=== PATIENT | female | born 1960 | race Caucasian/White ===

== ENCOUNTER 2021-01-17 11:01 | Emergency (ER) | payer OTHER ==
[2021-01-17 11:53] LABS: Absolute Lymphocytes (CBC) 2.2 K/uL (0.7-4.9); Basophils % 0.6 % (0-1.3); Hematocrit 44.2 % (36.0-45.0); MPV 7.6 fL (7.6-11.3); Protime INR 0.89; RBC Red Blood Cell Count 4.76 M/uL (3.86-4.86)
[2021-01-17 12:12] LABS: ALT/SGPT 29 U/L (12-78); AST/SGOT 18 U/L (15-37); Albumin 4.1 g/dL (3.4-5.0); Alkaline Phosphatase 73 U/L (45-117); BUN Blood Urea Nitrogen 17 mg/dL (7-18); Bicarbonate 29 mmol/L (21-32); Bilirubin Direct 0.1 mg/dL (0-0.2); Bilirubin Total 0.5 mg/dL (0.2-1.0); Glucose Level 110 mg/dL (74-106); Magnesium 2.3 mg/dL (1.8-2.4); NT PRO-BNP 57 pg/mL (<125); Potassium 3.9 mmol/L (3.5-5.1); Protein, Total 7.8 g/dL (6.4-8.2); Sodium Level 142 mmol/L (136-145); Troponin (Emerg Dept Use Only) < 0.02 ng/mL (0.0-0.045)
[2021-01-17 12:43] LABS: Thyroid Stimulating Hormone 2.05 uIU/mL (0.360-3.740)
--- NOTE | 2021-01-17 13:12 | ER ---
Nurse's Notes [facility] Name: Shelly Celaya Age: 60 yrs Sex: Female : 1960 Arrival Date: 01/17/2021 Time: 11:06 Bed Waiting Private MD: Diagnosis: Paroxysmal atrial fibrillation Presentation: 01/17 11:14 Chief complaint: Patient states: Dizzy for a few days, worse today. Apple watch showed ll1 possible A fib. PCP told her to come get checked. Coronavirus screen: Client denies travel out of the [place] in the last 14 days. At this time, the client does not indicate any symptoms associated with coronavirus-19. Ebola Screen: Patient denies travel to an Ebola-affected area in the 21 days before illness onset. Initial Sepsis Screen: Does the patient meet any 2 criteria? No. Patient's initial sepsis screen is negative. Does the patient have a suspected source of infection? No. Patient's initial sepsis screen is negative. Risk Assessment: Do you want to hurt yourself or someone else? Patient reports no desire to harm self or others. Onset of symptoms was January 14, 2021. 11:14 Method Of Arrival: Ambulatory ll1 11:14 Acuity: SARITA 3 ll1 Triage Assessment: 11:27 General: Appears in no apparent distress. Behavior is calm, cooperative, appropriate ll1 for age. Pain: Denies pain. Neuro: Level of Consciousness is awake, alert, obeys commands, Oriented to person, place, time, situation, Appropriate for age Learning Program Manager are Moves all extremities. Full function Gait is steady, Speech is normal, Facial symmetry appears normal, Reports dizziness, a syncopal episode. Cardiovascular: Reports apple watch said A FIB Heart tones S1 S2 Capillary refill < 3 seconds Clubbing of nail beds is absent JVD is absent Patient's skin is warm and dry. Rhythm is regular. Respiratory: No deficits noted. GI: Abdomen is flat, Bowel sounds present X 4 quads. Reports nausea. Musculoskeletal: No deficits noted. Historical: - Allergies: 11:15 "pain medication"; ll1 - PMHx: 11:15 None; ll1 - PSHx: 11:15 polyps removed; ll1 - Immunization history:: Client reports receiving the 2nd dose of the Covid vaccine, Flu vaccine is up to date. - Social history:: Smoking status: Patient denies any tobacco usage or history of. - Family history:: not pertinent. - Hospitalizations: : No recent hospitalization is reported. Screenin:29 Abuse screen: Denies threats or abuse. Nutritional screening: No deficits noted. ll1 Tuberculosis screening: No symptoms or risk factors identified. Fall Risk IV access (20 points). Gait- Weak (10 pts.). Total Hammond Fall Scale indicates Low Risk Score (25-44 pts). Fall prevention measures have been instituted. Side Rails Up X 2 Frequent Obs/Assesments occuring As available Patient and Family Educated on Fall Prevention Program and strategies. Assessment: 12:30 Reassessment: No changes from previously documented assessment. Patient and/or family ll1 updated on plan of care and expected duration. Pain level reassessed. Patient is alert, oriented x 3, equal unlabored respirations, skin warm/dry/pink. Vital Signs: 11:14 BP 157 / 84; Pulse 85; Resp 17; Temp 98.1; Pulse Ox 100% ; Weight 80.74 kg; Height 5 ll1 ft. 6 in. (167.64 cm); Pain 0/10; 13:09 BP 153 / 84; Pulse 83; Resp 16; Pulse Ox 100% on R/A; ll1 11:14 Body Mass Index 28.73 (80.74 kg, 167.64 cm) ll1 ED Course: 11:06 Patient arrived in ED. mr 11:15 Triage completed. ll1 11:16 Arm band placed on. ll1 11:25 Vasyl Lemons MD is Attending Physician. rn 11:29 Patient has correct armband on for positive identification. Bed in low position. Call ll1 light in reach. Side rails up X 1. 11:29 EKG completed in triage. Results shown to MD. ll1 11:40 Inserted saline lock: 22 gauge in right antecubital area, using aseptic technique. ll1 Blood collected. 13:31 No provider procedures requiring assistance completed. IV discontinued, intact, ll1 bleeding controlled, No redness/swelling at site. Pressure dressing applied. Administered Medications: No medications were administered Outcome: 13:11 Discharge ordered by MD. rn 13:32 Discharged to home ambulatory. ll1 13:32 Condition: stable 13:32 Discharge instructions given to patient, Instructed on discharge instructions, follow up and referral plans. medication usage, Demonstrated understanding of instructions, follow-up care, medications, Prescriptions given X 1. 13:32 Patient left the ED. ll1 Signatures: Bouchra Peña Roman, MD MD rn Lewis, Lynsay, RN RN ll1
--- NOTE | 2021-01-17 13:12 | EDPHYS ---
Physician Documentation [facility] Name: Shelly Celaya Age: 60 yrs Sex: Female : 1960 Arrival Date: 01/17/2021 Time: 11:06 Bed Waiting Private MD: ED Physician Vasyl Lemons HPI: 01/17 12:06 This 60 yrs old Female presents to ER via Ambulatory with complaints of rn Nausea, Afib. 12:06 The patient presents with a history of irregular heart beat, heart racing. Context: The rn symptoms occur at rest. Onset: The symptoms/episode began/occurred this morning. Duration: The patient or guardian reports a single episode, that is now resolved. Modifying factors: The symptoms are aggravated by nothing. The symptoms are alleviated by nothing. Associated signs and symptoms: Pertinent positives: lightheadedness, nausea, Pertinent negatives: SOB, syncope. Severity of symptoms: At their worst the symptoms were moderate in the emergency department the symptoms have resolved. The patient has not experienced similar symptoms in the past. The patient has not recently seen a physician. Patient reports that this morning began with palpitations, felt irregular, felt lightheaded and dizzy. No previous cardiac history or arrhythmia. Reports feeling lightheaded and diaphoretic. Denies any chest pain or shortness of breath. Zirconia nauseous. Her apple watch told her that she might be in atrial fibrillation which she has never been diagnosed with. Takes a baby aspirin a day. Now symptoms have resolved and feels normal. Called her finisher plate made an appointment 2 weeks from now.. Historical: - Allergies: 11:15 "pain medication"; ll1 - PMHx: 11:15 None; ll1 - PSHx: 11:15 polyps removed; ll1 - Immunization history:: Client reports receiving the 2nd dose of the Covid vaccine, Flu vaccine is up to date. - Social history:: Smoking status: Patient denies any tobacco usage or history of. - Family history:: not pertinent. - Hospitalizations: : No recent hospitalization is reported. ROS: 12:06 Constitutional: Negative for fever, chills, and weight loss, Eyes: Negative for injury, rn pain, redness, and discharge, ENT: Negative for injury, pain, and discharge, Neck: Negative for injury, pain, and swelling, Cardiovascular: Positive for palpitations. Negative for chest pain Respiratory: Negative for shortness of breath, cough, wheezing, and pleuritic chest pain, Abdomen/GI: Negative for abdominal pain, vomiting, diarrhea, and constipation, Back: Negative for injury and pain, : Negative for injury, bleeding, discharge, and swelling, MS/Extremity: Negative for injury and deformity, Skin: Negative for injury, rash, and discoloration, Neuro: Negative for headache, weakness, numbness, tingling, and seizure. 12:06 All other systems are negative. Exam: 11:56 ECG was reviewed by the Attending Physician. rn 12:06 Constitutional: This is a well developed, well nourished patient who is awake, alert, rn and in no acute distress. Head/Face: Normocephalic, atraumatic. Eyes: Periorbital areas with no swelling, redness, or edema. ENT: No stridor Cardiovascular: Regular rate and rhythm. No pulse deficits. Respiratory: No increased work of breathing, no retractions or nasal flaring. Abdomen/GI: Soft, non-tender Skin: Warm, dry with normal turgor. Normal color with no rashes, no lesions, and no evidence of cellulitis. MS/ Extremity: Pulses equal, no cyanosis. Neurovascular intact. Full, normal range of motion. Equal circumference. Neuro: Awake and alert, GCS 15, oriented to person, place, time, and situation. Cranial nerves II-XII grossly intact. Motor strength 5/5 in all extremities. Sensory grossly intact. Vital Signs: 11:14 BP 157 / 84; Pulse 85; Resp 17; Temp 98.1; Pulse Ox 100% ; Weight 80.74 kg; Height 5 ll1 ft. 6 in. (167.64 cm); Pain 0/10; 13:09 BP 153 / 84; Pulse 83; Resp 16; Pulse Ox 100% on R/A; ll1 11:14 Body Mass Index 28.73 (80.74 kg, 167.64 cm) ll1 MDM: 13:07 Differential diagnosis: arrythmia, dehydration, stress disorder. Data reviewed: vital rn signs, nurses notes, lab test result(s), EKG, and as a result, I will discharge patient. Counseling: I had a detailed discussion with the patient and/or guardian regarding: the historical points, exam findings, and any diagnostic results supporting the discharge/admit diagnosis, lab results, the need for outpatient follow up, to return to the emergency department if symptoms worsen or persist or if there are any questions or concerns that arise at home. Response to treatment: the patient's symptoms have resolved after treatment, the patient's condition has returned to base line, and as a result, I will discharge patient. Special discussion: I discussed with the patient/guardian in detail that at this point there is no indication for admission to the hospital. It is understood, however, that if the symptoms persist or worsen the patient needs to return immediately for re-evaluation. Based on the history and exam findings, there is no indication for further emergent testing or inpatient evaluation. ED course: She remains in sinus rhythm, no acute abnormalities in blood. NSR on ECG. Asymptomatic. Most likely paroxysmal afib. Will dc home with low dose metoprolol and aspirin daily until cardiology f/u.. 13:11 Patient medically screened. rn 01/17 11:30 Order name: Basic Metabolic Panel; Complete Time: 13: [facility] 01/17 11:30 Order name: CBC with Diff; Complete Time: [facility] 01/17 11:30 Order name: LFT's; Complete Time: 13 [facility] 01/17 11:30 Order name: Magnesium; Complete Time: : [facility] 01/17 11:30 Order name: NT PRO-BNP; Complete Time: 13: [facility] 01/17 11:30 Order name: PT-INR; Complete Time: 13: [facility] 01/17 11:30 Order name: Troponin (emerg Dept Use Only); Complete Time: 13: [facility] 01/17 11:30 Order name: EKG; Complete Time: 11: [facility] 01/17 11:30 Order name: Cardiac monitoring; Complete Time: 11 [facility] 01/17 11:30 Order name: EKG - Nurse/Tech; Complete Time: [facility] 01/17 11:30 Order name: IV Saline Lock; Complete Time: : [facility] 01/17 11:58 Order name: TSH; Complete Time: 13: 01/17 11:58 Order name: T4 Free; Complete Time: 13: 01/17 11:30 Order name: Labs collected and sent; Complete Time: 11: [facility] 01/17 11:30 Order name: O2 Per Protocol; Complete Time: 1 01/17 11:30 Order name: O2 Sat Monitoring; Complete Time: ll EC:56 Rate is 84 beats/min. Rhythm is regular. QRS [place] is Normal. NE interval is normal. QRS rn interval is normal. QT interval is normal. No Q waves. T waves are Normal. No ST changes noted. Clinical impression: Normal ECG. Interpreted by me. Reviewed by me. Administered Medications: No medications were administered Disposition Summary: 01/17/21 13:11 Discharge Ordered Location: Home rn Problem: new rn Symptoms: have improved rn Condition: Stable rn Diagnosis - Paroxysmal atrial fibrillation rn Followup: rn - With: Private Physician - When: As needed - Reason: Recheck today's complaints, Re-evaluation by your physician Discharge Instructions: - Discharge Summary Sheet rn - Atrial Fibrillation rn Forms: - Medication Reconciliation Form rn - Thank You Letter rn - Antibiotic early morning babysitter - Prescription Opioid Use rn Prescriptions: - Metoprolol Tartrate 25 mg Oral Tablet - take 1 tablet by ORAL route 2 times per day with a meal; 60 tablet; Refills: 0, rn Product Selection Permitted Signatures: Dispatcher [employer] Vasly Purvis MD MD rn Lewis, Lynsay, RN RN 1 Corrections: (The following items were deleted from the chart) 13:20 11:31 Chest Single View+[email or web address] ordered. EDAL EDMS
[2021-01-17 14:57] VITALS: TEMP 98.1; O2SAT 100
[2021-01-17 14:59] VITALS: BP 153/84
--- NOTE | 2021-01-18 12:43 | EKG ---
Test Date: 2021-01-17 Test Time: 11:24:20 Burlesque Dancer: BENNY MEASUREMENT RESULTS: Intervals: Rate: 84 KS: 128 QRSD: 82 QT: 390 QTc: 460 Russell: P: 87 KS: 128 QRS: 75 T: 66 INTERPRETIVE STATEMENTS: Normal sinus rhythm Normal ECG No previous ECG available for comparison Electronically Signed On 01-18-21 12:41:37 CDT by Gallo Savage
== END 2021-01-17 13:32 | disposition home or self-care (01) ==
LOC: ER 11:01
DX: I48.0 Paroxysmal atrial fibrillation (principal)
CPT/HCPCS: 36415; 80048; 80076; 83735; 83880; 84439; 84443; 84484; 85025; 85610; 93005; 99283

== ENCOUNTER 2024-04-09 22:06 | Emergency (ER) | payer OTHER ==
--- OUTSIDE RECORDS SUMMARY | 2024-04-09 22:09 | XMS REPORT | Continuity of Care Document ---
Author Name Unknown Address [address] [facility] [address] [id number] [facility] thconnect Address [address] [facility] [address] [place] [address] Care Team Providers Care Chemistry Tutor Name Role Phone Alessia Rosenbaum Attending Clinician Unavail able GC_GCBZW_[place]_S Attending Clinician Unavaila ble Lab, Adc Fam Pob I Attending Clinician Unavailab Odessa Mccrary Attending Clinician [phone] ODESSA ROE Attending Clinician Unavailable Only, Adc Test Attending Clinician Unavailable Marcell Mckinney MD Attending Clinician [phone] MARCELL MCKINNEY Attending Clinician Unavailabl e Doctor Unassigned, [facility] Attending Clinician U navailable [email or web address]_S Admitting Clinician Unavaila ble Payers Payer Name Policy Type Policy Number Effective Date Expirati on Date Source AETNA 53 [id number] Common [facility] AETNA - CHOICE (POS II) [id number] 2008 00:00:00 Problems Condition Name Condition Details Condition Category Status Onset Date Resolution Date Last Treatment Date Treating Clinician Comments Source Hypothyroi dism Hypothyroi dism Problem Active 08-05 00:00: 00 [facility] Atrophic vaginitis Atrophic Vaginitis Problem Active 08-05 00:00: 00 [facility] Attention deficit hyperactiv ity disorder ADHD (attention deficit hyperactiv ity disorder) Problem [facility] [id number] Subclinica l hypothyroi dism Problem [facility] [id number] Pure hyperchole sterolemia Problem [facility] [id number] Overweight Problem Com [facility] [id number] Essential hypertensi on Problem [facility] [id number] Gastroesop hageal reflux disease without esophagiti s Problem [facility] Allergies, Adverse Reactions, Alerts Allergy Name Allergy Type Status Severity Reaction(s) Onset Date Inactive Date Treating Clinician Comments Source NO KNOWN ALLERGIE S Drug Class Active [facility] Social History Social Habit Start Date Stop Date Quantity Comments Source History of Tobacco Use [facility] Sex Assigned At [facility] Exposure to SARS-CoV-2 (event) Yes [facility] Smoking Status Start Date Stop Date Source Unknown if ever smoked [facility] Never Smoker [facility] Former Smoker 2023-06-18 00:00:00 2023-06-18 00:00:00 [facility] Medications Ordered Medication Name Filled Medication Name Start Date Stop Date Current Medication? Ordering Clinician Indication Dosage Frequency Signature (SIG) Comments Components Source Vyvanse 20 MG Vyvanse 20 MG 2023-04 0 00:00: 00 No 1{capsu le_in_t he_morn ing} QD Vyvanse 20 MG Vyvanse 30 MG Vyvanse 30 MG 07-23 00:00: 00 No 1{capsu le_in_t he_morn ing} QD Vyvanse 30 MG Pepcid AC 10 MG Pepcid AC 10 MG No 1{table t_as_ne eded} BID Pepcid AC 10 MG Vitamin D3 Vitamin D3 No Vitamin D3 Levothyroxi ne Sodium 25 MCG Levothyroxi ne Sodium 25 MCG No QD Levothyrox ine Sodium 25 MCG Magnesium Citrate 125 MG Magnesium Citrate 125 MG No Magnesium Citrate 125 MG Omeprazole 20 MG Omeprazole 20 MG No QD Omeprazole 20 MG levothyroxi ne levothyroxi ne No levothyrox ine [facility] metoprolol succinate 25 mg metoprolol succinate 25 mg No metoprolol succinate 25 mg [facility] Vitamin D 5000 mg Vitamin D 5000 mg No Vitamin D 5000 mg [facility] Vyvanse 30 mg capsule Take 1 capsule every day by oral route. Vyvanse 30 mg capsule Take 1 capsule every day by oral route. No 1capsul e(s) Q1D Vyvanse 30 mg capsule Take 1 capsule every day by oral route. [facility] Immunizations Ordered Immunization Name Filled Immunization Name Date Status Comments Source Boostrix (Tdap) Boostrix (Tdap) Unknown Completed [facility] Boostrix (Tdap) Boostrix (Tdap) Unknown Completed [facility] Boostrix (Tdap) Boostrix (Tdap) Unknown Completed [facility] Boostrix (Tdap) Boostrix (Tdap) Unknown Completed [facility] Boostrix (Tdap) Boostrix (Tdap) Unknown Completed [facility] Fluarix (IIV3) - SDS - 0.5mL Fluarix (IIV3) - SDS - 0.5mL Unknown Completed [facility] Boostrix (Tdap) Boostrix (Tdap) Unknown Completed [facility] Boostrix (Tdap) Boostrix (Tdap) Unknown Completed [facility] Vital Signs Vital Name Observation Time Observation Value Comments S ource height 2024-01-29 08:00:00 66 [in_i] Commo n [facility] weight 2024-01-29 08:00:00 182 [lb_av] Comm on [facility] temperature 2024-01-29 08:00:00 97.3 [degF] Com mon [facility] bmi 2024-01-29 08:00:00 29.37 kg/m2 Comm on [facility] oximetry 2024-01-29 08:00:00 99 % Commo n [facility] respiratory rate 2024-01-29 08:00:00 17 /min [facility] blood pressure systolic 2024-01-29 08:00:00 130 mm[Hg] Common Spiri t [facility] blood pressure diastolic 2024-01-29 08:00:00 80 mm[Hg] [facility] BP Systolic 2023-08-06 00:00:00 151 mm[Hg] [facility] BP Diastolic 2023-08-06 00:00:00 90 mm[Hg] [facility] Weight 2023-08-06 00:00:00 183.2 [lb_av] [facility] BMI (Body Mass Index) 2023-08-06 00:00:00 29.6 kg/m2 [facility] Height 2023-08-06 00:00:00 66 [in_i] [facility] height 2023-07-30 09:40:00 66 [in_i] Commo n [facility] weight 2023-07-30 09:40:00 182 [lb_av] Comm on [facility] temperature 2023-07-30 09:40:00 97.5 [degF] Com mon [facility] bmi 2023-07-30 09:40:00 29.37 kg/m2 Comm on [facility] oximetry 2023-07-30 09:40:00 94 % Commo n [facility] respiratory rate 2023-07-30 09:40:00 18 /min Common [facility] blood pressure systolic 2023-07-30 09:40:00 139 mm[Hg] Common Spiri t [facility] blood pressure diastolic 2023-07-30 09:40:00 85 mm[Hg] [facility] height 2023-06-18 09:40:00 66 [in_i] Commo n [facility] weight 2023-06-18 09:40:00 184 [lb_av] Comm on [facility] temperature 2023-06-18 09:40:00 97.8 [degF] Com mon [facility] bmi 2023-06-18 09:40:00 29.7 kg/m2 Commo n [facility] oximetry 2023-06-18 09:40:00 96 % Commo n [facility] respiratory rate 2023-06-18 09:40:00 18 /min [facility] blood pressure systolic 2023-06-18 09:40:00 139 mm[Hg] Common [facility] blood pressure diastolic 2023-06-18 09:40:00 81 mm[Hg] [facility] height 2023-05-20 09:00:00 66 [in_i] Commo n [facility] weight 2023-05-20 09:00:00 184 [lb_av] Comm on [facility] temperature 2023-05-20 09:00:00 97.5 [degF] Com mon [facility] bmi 2023-05-20 09:00:00 29.7 kg/m2 Commo n [facility] oximetry 2023-05-20 09:00:00 98 % Commo n [facility] respiratory rate 2023-05-20 09:00:00 17 /min [facility] blood pressure systolic 2023-05-20 09:00:00 140 mm[Hg] [facility] blood pressure diastolic 2023-05-20 09:00:00 80 mm[Hg] [facility] Procedures Procedure Date / Time Performed Performing Clinicia n Source MAMMO, screening, digital, bilateral 2023-08-06 00:00:00 [facility] DEXA 2023-08-06 00:00:00 Delphine westbrook ASSIGNMENT OF BENEFITS 2020-03-21 18:01:10 Docto r Unassigned, [address] [facility] Plan of Care Planned Activity Planned Date Details Comments Source Future Appointment 2024-08-06 08:30:00 Tianna abdi, Aminta [address]; [facility] [address], [place] [address] [facility] Encounters Start Date/Time End Date/Time Encounter Type Admission Type Attending Clinicians Care Facility Care Department Encounter ID Source 2023-07-26 11:47:00 Outpatient Alessia Rosenbaum STLC STLMLC [id number] [facility] 2023-06-14 10:24:01 Outpatient Alessia Rosenbaum STLMLC STLMLC [id number] [facility] 2023-05-20 08:43:01 Outpatient Alessia Rosenbaum ST[facility] STLMLC [id number] [facility] 2024-01-29 00:00:00 2024-01-29 00:00:00 OFFICE VISIT ESTAB PT LEVEL 4 STLMLC STLC [id number] [facility] 2023-11-21 00:00:00 2023-11-21 00:00:00 (TEL) STLMLC STLMLC [id number] [facility] 2023-09-03 00:00:00 2023-09-03 00:00:00 GABRIELA Alvarado: [address], [address], [place] [address] , Ph. [facility] - [facility]BZ[facility]* [id number] [facility] 2023-08-08 00:00:00 2023-08-08 00:00:00 Deirdre Guerrero MD: [address], [address], [place] [address] , Ph. [facility] - [facility]BZ[facility]* [id number] [facility] 2023-08-07 00:00:00 2023-08-07 00:00:00 Outpatient GC_GCBZW_Mary gomez_Mando [facility] [id number] [facility] 2023-08-06 00:00:00 2023-08-06 00:00:00 BETTY Li: [address], [address], [place] [address] , Ph. GC_GCBZW_Ka diyala_S [facility] - GC_GCBZW_[facility]* [id number] [facility] 2023-07-30 00:00:00 2023-07-30 00:00:00 OFFICE VISIT ESTAB PT LEVEL 4 STLMLC STLMLC [id number] [facility] 2023-07-25 00:00:00 2023-07-25 00:00:00 (TEL) STLMLC STLMLC [id number] [facility] 2023-07-24 00:00:00 2023-07-24 00:00:00 (TEL) STLMLC STLMLC [id number] [facility] 2023-07-24 00:00:00 2023-07-24 00:00:00 (TEL) STLMLC STLMLC [id number] [facility] 2023-06-24 00:00:00 2023-06-24 00:00:00 Outpatient GC_GCBZW_Ka diyala_S PRIV PRIV [id number] [facility] 2023-06-20 00:00:00 2023-06-20 00:00:00 Outpatient GC_GCBZW_Ka diyala_S PRIV PRIV [id number] [facility] 2023-06-18 00:00:00 2023-06-18 00:00:00 PREV VISIT EST AGE 40-64 STLMLC STLMLC [id number] [facility] 2023-06-18 00:00:00 2023-06-18 00:00:00 (TEL) STLMLC STLMLC [id number] [facility] 2023-05-22 00:00:00 2023-05-22 00:00:00 (TEL) STLMLC STLMLC [id number] [facility] 2023-05-20 00:00:00 2023-05-20 00:00:00 OFFICE VISIT NEW PT LEVEL 4 STLMLC STLMLC [id number] [facility] 2020-05-19 13:37:06 2020-05-19 13:57:06 Laboratory Only Lab, Adc Fam Pob Darryn Deon Odessa Grant [facility] [address] 1..[id number] [facility] 2020-05-19 13:20:00 2020-05-19 13:20:00 Outpatient Cecily ODESSA ROE [facility] [id number] [facility] 2020-03-21 12:00:15 2020-03-21 12:15:15 Laboratory Only Only, [facility] Test Marcell Mckinney [facility] 1..840.114 [id number] [facility] 2020-03-21 11:30:00 2020-03-21 11:30:00 Outpatient MARCELL OLIVEROS [facility] [id number] [facility] 2020-03-21 00:00:00 2020-03-21 00:00:00 Orders Only Doctor Unassigned, [address] [facility] 1..840.114 [id number] [facility] Results Test Description Test Time Test Comments Results Result Co mments Source Genetic screen in Specimen by Molecular genetics method [id number] 00:00:00* Test Item Value Reference Range Interpretation Comme nts colaris and myrisk / note 2 tests (test code = colaris and myrisk / note 2 tests) significant clinical history finding Delphine Gayle LB + [id number] 00:00:00* Test Item Value Reference Range Interpretation Comme nts LMP date: (test code = LMP date:) 04/29/2008 Pap, liquid-based (test code = Pap, liquid-based) nilm nilm source (liquid-based cytology): (test code = source (liquid-based cytology):) cervical (which includes endocervical) HPV high risk DNA (non 16/18) (test code = HPV high risk DNA (non 16/18)) not detected not detected HPV high risk DNA type 16 (test code = HPV high risk DNA type 16) not detected not detected HPV high risk DNA type 18 (test code = HPV high risk DNA type 18) not detected not detected [facility]
[2024-04-10] MEDS ORDERED: IPRATROPIUM BROM 0.5MG/2.5ML ONE (00:47)
[2024-04-10] MEDS ORDERED: ALBUTEROL 2.5 MG/3 ML NEB SOL ONE (00:47)
[2024-04-10] MEDS ORDERED: HYDROCODONE/CHLORPHEN 5 ML/OSYR ONE (00:47)
--- NOTE | 2024-04-10 01:23 | ER ---
Nurse's Notes [facility] Name: Shelly Celaya Age: 63 yrs Sex: Female : 1960 Arrival Date: 04/09/2024 Time: 22:06 Bed DX3 Private MD: Diagnosis: Acute suppurative otitis media-bilateral;Cough Presentation: 04/09 22:46 Chief complaint: Patient states: cough/congestion times 4 days, low fever, sore throat. vc1 Coronavirus screen: Client denies travel out of the [place] in the last 14 days. congestion, cough unrelated to allergies, fever, sore throat, Client presents with at least one sign or symptom that may indicate coronavirus-19. Ebola Screen: Patient negative for fever greater than or equal to 101.5 degrees Fahrenheit, and additional compatible Ebola Virus Disease symptoms Patient denies exposure to infectious person. Patient denies travel to an Ebola-affected area in the 21 days before illness onset. No symptoms or risks identified at this time. Initial Sepsis Screen: Does the patient meet any 2 criteria? No. Patient's initial sepsis screen is negative. Does the patient have a suspected source of infection? No. Patient's initial sepsis screen is negative. Risk Assessment: Do you want to hurt yourself or someone else? Patient reports no desire to harm self or others. Onset of symptoms was April 05, 2024. Care prior to arrival: Medication(s) given: Motrin, 400 mg, Tylenol, 500 mg. 22:46 Method Of Arrival: Ambulatory vc1 22:46 Acuity: SARITA 3 vc1 Triage Assessment: 23:00 General: Appears in no apparent distress. uncomfortable, ill, slender, well groomed, vc1 well developed, well nourished, Behavior is calm, cooperative, appropriate for age. Pain: Complains of pain in right ear and left ear. EENT: Nares with drainage noted Reports nasal discharge that is watery. Neuro: Level of Consciousness is awake, alert, obeys commands, Oriented to person, place, time, situation, Appropriate for age. Cardiovascular: Heart tones S1 S2 present Capillary refill < 3 seconds Patient's skin is warm and dry. Respiratory: Airway is patent Respiratory effort is even, unlabored, Respiratory pattern is regular, symmetrical, Breath sounds are clear bilaterally. GI: Abdomen is flat, non-distended. : No deficits noted. No signs and/or symptoms were reported regarding the genitourinary system. Derm: Skin is intact, is healthy with good turgor, Skin is dry, Skin is normal, Skin temperature is warm. Musculoskeletal: Circulation, motion, and sensation intact. Range of motion: intact in all extremities. Historical: - Allergies: 22:48 NKDA; vc1 - PMHx: 22:48 None; vc1 - PSHx: 22:48 polyps removed; vc1 - Immunization history:: Client reports receiving the 2nd dose of the Covid vaccine, Flu vaccine is up to date. - Infectious Disease History:: Denies. - Social history:: Smoking status: Patient denies any tobacco usage or history of. Screenin:00 [facility] ED Fall Risk Assessment (Adult) History of falling in the last 3 months, vc1 including since admission No falls in past 3 months (0 pts) Confusion or Disorientation No (0 pts) Intoxicated or Sedated No (0 pts) Impaired Gait No (0 pts) Mobility Assist Device Used No (0 pt) Altered Elimination No (0 pt) Score/Fall Risk Level 0 - 2 = Low Risk Oriented to surroundings, Maintained a safe environment, Educated pt \T\ family on fall prevention, incl call for assistance when getting out of bed, Hourly rounding (assess needs \T\ fall precautionary measures) done. Abuse screen: Denies threats or abuse. Nutritional screening: No deficits noted. Tuberculosis screening: No symptoms or risk factors identified. Vital Signs: 22:46 BP 127 / 76; Pulse 86; Resp 14; Temp 98.7; Pulse Ox 97% ; Weight 78.02 kg; Height 5 ft. vc1 6 in. ; Pain 2/10; 22:46 Body Mass Index 27.76 (78.02 kg, 167.64 cm) vc1 22:46 Pain Scale: Adult vc1 ED Course: 22:09 Patient arrived in ED. ra3 22:15 Jose Cadena PA is PHCP. cp 22:15 Bennie Angelo MD is Attending Physician. cp 22:48 Triage completed. vc1 22:49 Arm band placed on right wrist. vc1 23:01 XRAY Chest Pa And Lat (2 Views) In Process Unspecified. EDMS 04/10 01:37 Patient has correct armband on for positive identification. Provided Education on: vc1 complete abx. 01:37 No provider procedures requiring assistance completed. Patient did not have IV access vc1 during this emergency room visit. Administered Medications: 00:50 Drug: Ipratropium Inhalation Aerosol 0.5 mg Inhalation once Route: Inhalation; vc1 00:51 Drug: Tussionex Pennkinetic ER PO Suspension 5 ml PO once Route: PO; vc1 01:28 Follow up: Response: No adverse reaction; Marked relief of symptoms vc1 00:51 Drug: Albuterol Inhalation 2.5 mg Inhalation once Route: Inhalation; vc1 01:36 Drug: Amoxicillin-Clavulanate PO 875 mg PO once Route: PO; vc1 01:36 Follow up: Response: Medication administered at discharge. vc1 Medication: 01:37 VIS not applicable for this client. vc1 Outcome: 01:23 Discharge ordered by . cp 01:41 Discharged to home ambulatory, with significant other, vc1 01:41 Condition: good 01:41 Discharge instructions given to patient, Instructed on discharge instructions, follow up and referral plans. medication usage, Demonstrated understanding of instructions, follow-up care, medications, Prescriptions given X 3, 01:42 Patient left the ED. vc1 Signatures: Dispatcher [employer] EDGA Jose Cadena PA PA cp Calcote, Vanessa RN RN vc1 Analisa Avitia ra3
--- NOTE | 2024-04-10 01:24 | EDPHYS ---
Physician Documentation [facility] Name: Shelly Celaya Age: 63 yrs Sex: Female : 1960 Arrival Date: 04/09/2024 Time: 22:06 Bed DX3 Private MD: ED Physician Bennie Angelo HPI: 04/09 22:50 This 63 yrs old Female presents to ER via Ambulatory with complaints of Cold Symptoms, cp Flu Symptoms. 22:50 The patient or guardian reports cough, that is constant, with productive sputum, chest cp congestion, sore throat, ear pressure and loss of hearing, fever. 22:50 Onset: The symptoms/episode began/occurred 4 day(s) ago. Severity of symptoms: in the emergency department the symptoms are unchanged despite home interventions. Historical: - Allergies: 22:48 NKDA; vc1 - PMHx: 22:48 None; vc1 - PSHx: 22:48 polyps removed; vc1 - Immunization history:: Client reports receiving the 2nd dose of the Covid vaccine, Flu vaccine is up to date. - Infectious Disease History:: Denies. - Social history:: Smoking status: Patient denies any tobacco usage or history of. ROS: 22:55 Constitutional: Positive for body aches, fever, cp 22:55 Eyes: Negative for injury, pain, redness, and discharge, cp 22:55 ENT: Positive for ear pain, hearing loss, sore throat, Negative for drainage from ear(s), difficulty swallowing, difficulty handling secretions, 22:55 Cardiovascular: Negative for chest pain, 22:55 Respiratory: Positive for cough, "sounds productive", 22:55 Abdomen/GI: Negative for vomiting, diarrhea, constipation, 22:55 Neuro: Negative for altered mental status, weakness, 22:55 All other systems are negative, cp Exam: 23:00 Constitutional: The patient appears in no acute distress, alert, awake, non-toxic, well cp developed, well nourished, 23:00 Head/Face: Normocephalic, atraumatic. cp 23:00 Eyes: Periorbital structures: appear normal, Conjunctiva: normal, no exudate, no injection, Sclera: no appreciated abnormality, Lids and lashes: appear normal, bilaterally, 23:00 ENT: External ear(s): are unremarkable, Ear canal(s): are normal, clear, TM's: bulging, bilaterally, erythema, that is moderate, bilaterally, Nose: is normal, Mouth: Lips: moist, Oral mucosa: moist, Posterior pharynx: Airway: no evidence of obstruction, patent, Tonsils: with erythema, no enlargement, no exudate, erythema, that is mild, exudate, is not appreciated, 23:00 Neck: ROM/movement: is normal, is supple, without pain, no range of motions limitations, no meningismus, no nuchal rigidity, 23:00 Chest/axilla: Inspection: normal, 23:00 Cardiovascular: Rate: normal, 23:00 Respiratory: the patient does not display signs of respiratory distress, Respirations: labored breathing, is not present, intercostal retractions, are absent, Breath sounds: decreased breath sounds, are not appreciated, stridor, is not appreciated, + upper airway congestion. wheezing: is not appreciated, 23:00 Abdomen/GI: Exam negative for discomfort, distension, guarding, Inspection: abdomen appears normal, Vital Signs: 22:46 BP 127 / 76; Pulse 86; Resp 14; Temp 98.7; Pulse Ox 97% ; Weight 78.02 kg; Height 5 ft. vc1 6 in. ; Pain 2/10; 22:46 Body Mass Index 27.76 (78.02 kg, 167.64 cm) vc1 22:46 Pain Scale: Adult vc1 MDM: 22:43 Medical Screening Exam initiated 04/10 00:00 Differential diagnosis: bronchitis, flu, pneumonia, otitis media, strep throat. 00:45 Independent interpretation of the following test(s) in the Emergency Department X-Ray: My interpretation is images of chest negative for focal pneumonia. 01:22 Data reviewed: vital signs, nurses notes, lab test result(s), radiologic studies, plain cp films, and as a result, I will discharge patient. 01:22 I considered the following discharge prescriptions or medication management in the emergency department Medications were administered in the Emergency Department. See MAR. Counseling: I had a detailed discussion with the patient and/or guardian regarding the historical points, exam findings, and any diagnostic results supporting the discharge/admit diagnosis, lab results, radiology results, to return to the emergency department if symptoms worsen or persist or if there are any questions or concerns that arise at home. Response to treatment: the patient's symptoms have mildly improved after treatment, and as a result, I will discharge patient. 04/09 22:44 Order name: RSV; Complete Time: 01:22 cp 04/10 01:22 Interpretation: Reviewed. cp 04/09 22:44 Order name: SARS RAPID cp 04/09 22:44 Order name: Strep; Complete Time: 01:22 cp 04/10 01:22 Interpretation: Reviewed. cp 04/09 22:44 Order name: Influenza Screen (a \\T\\ B); Complete Time: 01:22 cp 04/10 01:22 Interpretation: Reviewed. 04/10 01:22 Order name: Throat Culture EDMS 04/09 22:44 Order name: XRAY Chest Pa And Lat (2 Views) cp Administered Medications: 00:50 Drug: Ipratropium Inhalation Aerosol 0.5 mg Inhalation once Route: Inhalation; vc1 00:51 Drug: Tussionex Pennkinetic ER PO Suspension 5 ml PO once Route: PO; vc1 01:28 Follow up: Response: No adverse reaction; Marked relief of symptoms vc1 00:51 Drug: Albuterol Inhalation 2.5 mg Inhalation once Route: Inhalation; vc1 01:36 Drug: Amoxicillin-Clavulanate PO 875 mg PO once Route: PO; vc1 01:36 Follow up: Response: Medication administered at discharge. vc1 Disposition: 19:45 Co-signature as Attending Physician, Bennie Angelo MD I agree with the assessment sp4 and plan of care. I reviewed the patient's care provided by the Advanced Practice Provider and agree with the diagnosis and treatment plan. Disposition Summary: 04/10/24 01:23 Discharge Ordered Notes: Location: Home cp Problem: new cp Symptoms: are unchanged cp Condition: Stable cp Diagnosis - Acute suppurative otitis media - bilateral cp - Cough cp Followup: cp - With: Private Physician - When: 2 - 3 days - Reason: Worsening of condition Discharge Instructions: - Discharge Summary Sheet cp - Otitis Media, Adult cp - Cough, Adult cp Forms: - Medication Reconciliation Form cp - Antibiotic Education cp - Prescription Opioid Use cp - Patient Portal Instructions cp - Leadership Thank You Letter cp Prescriptions: - Bromfed DM 2-30-10 mg/5 mL Oral syrup - administer 10 milliliter ORAL route every 6-8 hours as needed for cold cp symptoms; 240 milliliter; Refills: 0, Product Selection Permitted - albuterol sulfate 90 mcg/actuation Inhalation HFA Aerosol Inhaler - inhale 1 puff INHALATION route every 4 to 6 hours as needed for bronchospasm; cp administer via ventilator; 1 unit; Refills: 0, Product Selection Permitted - Augmentin 875-125 mg Oral Tablet - take 1 tablet ORAL route every 12 hours for 10 days; 20 tablet; Refills: 0, cp Product Selection Permitted Signatures: Dispatcher [employer] EDMS Jose Cadena PA PA cp Calcote, Vanessa RN RN vc1 Bennie Angelo MD MD sp4 Corrections: (The following items were deleted from the chart) 04/09 22:45 22:45 Respiratory Syncytial Virus Ag+BA.LAB.BRZ ordered. EDMS EDMS 22:45 22:45 SARS-COV-2 Antigen Rapid+I.LAB.BRZ ordered. EDMS EDMS 22:45 22:45 Group A Streptococcus Rapid Sc+BA.LAB.BRZ ordered. EDMS EDMS 22:45 22:45 Influenza Screen (A \\T\\ B)+BA.LAB.BRZ ordered. EDMS EDMS
[2024-04-10] MEDS ORDERED: AMOX/K CLAV 875 MG TAB ONE (01:32)
[2024-04-10 01:33] LABS: SARS-CoV-2 Antigen CONTROL BLUE LINE VIS/BG OK; SARS-CoV-2 Antigen Rapid Res Negative (Negative)
[2024-04-10 02:00] VITALS: BP 127/76; TEMP 98.7; O2SAT 97
--- NOTE | 2024-04-10 05:36 | RAD REPORT ---
EXAM: XR Chest, 2 Views CLINICAL HISTORY: Cough. TECHNIQUE: Frontal and lateral views of the chest. COMPARISON: No relevant prior studies available. FINDINGS: Lungs: Unremarkable. No consolidation. Pleural space: Unremarkable. No pneumothorax. Heart: Unremarkable. No cardiomegaly. Mediastinum: Unremarkable. Normal mediastinal contour. Bones/joints: Unremarkable. No acute fracture. IMPRESSION: No acute disease. Electronically signed by: Jeuss Gonzalez MD 04/09/2024 11:33 PM [facility] Due to temporary technical issues with the [employer] reporting system, reports are being twin d by the in-house radiologist without review as a courtesy to ensure prompt reporting the interpreting radiologist is fully responsible for the content of the report. Transcribed Date/Time: 04/10/2024 5:35 AM
== END 2024-04-10 01:42 | disposition home or self-care (01) ==
LOC: ER 22:06
DX: H66.003 Acute suppurative otitis media without spontaneous rupture of ear drum, bilateral (principal); R05.9 Cough, unspecified; Z11.52 Encounter for screening for COVID-19
CPT/HCPCS: 87070; 36415; 87081; 87807; 87804 ×2; 71046; 99284; 87811; J7613; J7644

== ENCOUNTER 2025-02-03 19:53 | Emergency (ER) | payer OTHER ==
--- OUTSIDE RECORDS SUMMARY | 2025-02-03 19:56 | XMS REPORT | Continuity of Care Document ---
Author Name Unknown Address [address] [place] [address] [facility] Address [address] [place] [address] Care Team Providers Care Laboratory Aide Name Role Phone Alessia Rosenbaum Attending Clinician Unavail able GC_GCBZW_[place]_S Attending Clinician Unavaila ble Lab, Adc Fam Pob I Attending Clinician Unavailab Odessa Mccrary Attending Clinician ODESSA ROE Attending Clinician Unavailable Only, Adc Test Attending Clinician Unavailable Marcell Mckinney MD Attending Clinician [phone] MARCELL MCKINNEY Attending Clinician Unavailabl e Doctor Unassigned, Panther Burn Attending Clinician U navailable [email or web address]_[place]_S Admitting Clinician Unavaila ble Payers Payer Name Policy Type Policy Number Effective Date Expirati on Date Source AETNA 53 [id number] [facility] AET[employer] - CHOICE (POS II) [id number] 2008 00:00:00 Problems Condition Name Condition Details Condition Category Status Onset Date Resolution Date Last Treatment Date Treating Clinician Comments Source Hypothyroi dism Hypothyroi dism Problem Active 08-05 00:00: 00 [facility] Atrophic vaginitis Atrophic Vaginitis Problem Active 08-05 00:00: 00 [facility] Attention deficit hyperactiv ity disorder ADHD (attention deficit hyperactiv ity disorder) Problem [facility] Abnormal mammogram Abnormal mammogram Problem [facility] Non-season al allergic rhinitis, unspecifie d trigger Non-season al allergic rhinitis, unspecifie d trigger Problem [facility] [id number] [facility] hypothyroi dism Problem [facility] [id number] Pure hyperchole sterolemia Problem [facility] [id number] Overweight Problem [facility] [place] [id number] Essential hypertensi on Problem [facility] [id number] Gastroesop hageal reflux disease without esophagiti s Problem [facility] Allergies, Adverse Reactions, Alerts Allergy Name Allergy Type Status Severity Reaction(s) Onset Date Inactive Date Treating Clinician Comments Source NO KNOWN ALLERGIE S Drug Class Active [facility] Social History Social Habit Start Date Stop Date Quantity Comments Source Exposure to SARS-CoV-2 (event) Yes [facility] History of Tobacco Use [facility] Sex Assigned At [facility] Smoking Status Start Date Stop Date Source Unknown if ever smoked [facility] Never Smoker [facility] Former Smoker 2023-06-18 00:00:00 2023-06-18 00:00:00 [facility] Medications Ordered Medication Name Filled Medication Name Start Date Stop Date Current Medication? Ordering Clinician Indication Dosage Frequency Signature (SIG) Comments Components Source Azithromyci n 250 MG Azithromyci n 250 MG 11-30 00:00: 00 No QD Azithromyc in 250 MG methylPREDN ISolone 4 MG methylPREDN ISolone 4 MG 11-30 00:00: 00 No QD methylPRED NISolone 4 MG Benzonatate 200 MG Benzonatate 200 MG 11-30 00:00: 00 No 1{capsu le} TID Benzonatat e 200 MG Kenalog (Triamcinol one) Kenalog (Triamcinol one) 11-30 00:00: 00 No 40mg [facility] Vyvanse 20 MG Vyvanse 20 MG 11-23 00:00: 00 No 1{capsu le_in_t he_morn ing} QD Vyvanse 20 MG Wegovy 0.25 MG/0.5ML Wegovy 0.25 MG/0.5ML 11-23 00:00: 00 No Wegovy 0.25 MG/0.5ML Probiotic Probiotic 05-08 00:00: 00 No 1{capsu le} QD Probiotic Magnesium Citrate 125 MG Magnesium Citrate 125 MG No Magnesium Citrate 125 MG Pantoprazol e Sodium 40 MG Pantoprazol e Sodium 40 MG No 1{table t} QD Pantoprazo le Sodium 40 MG Rosuvastati n Calcium 5 MG Rosuvastati n Calcium 5 MG No QD Rosuvastat in Calcium 5 MG levothyroxi ne levothyroxi ne No levothyrox ine [facility] metoprolol succinate 25 mg metoprolol succinate 25 mg No metoprolol succinate 25 mg [facility] Vitamin D 5000 mg Vitamin D 5000 mg No Vitamin D 5000 mg [facility] rosuvastati n rosuvastati n No rosuvastat in [facility] Vyvanse 20 mg capsule Take 1 capsule every day by oral route. Vyvanse 20 mg capsule Take 1 capsule every day by oral route. No 1capsul e(s) Q1D Vyvanse 20 mg capsule Take 1 capsule every day by oral route. [facility] Immunizations Ordered Immunization Name Filled Immunization Name Date Status Comments Source Boostrix (Tdap) Boostrix (Tdap) Unknown Completed [facility] Boostrix (Tdap) Boostrix (Tdap) Unknown Completed [facility] Boostrix (Tdap) Boostrix (Tdap) Unknown Completed [facility] Boostrix (Tdap) Boostrix (Tdap) Unknown Completed [facility] Boostrix (Tdap) Boostrix (Tdap) Unknown Completed [facility] Fluarix (IIV3) - SDS - 0.5mL Fluarix (IIV3) - SDS - 0.5mL Unknown Completed [facility] Boostrix (Tdap) Boostrix (Tdap) Unknown Completed [facility] Boostrix (Tdap) Boostrix (Tdap) Unknown Completed [facility] Vital Signs Vital Name Observation Time Observation Value Marc sparks height 2024-11-30 09:40:00 66 [in_i] Commo n [facility] weight 2024-11-30 09:40:00 178.8 [lb_av] Co [facility] temperature 2024-11-30 09:40:00 97.1 [degF] [facility] [place] bmi 2024-11-30 09:40:00 28.86 kg/m2 Comm on [facility] oximetry 2024-11-30 09:40:00 98 % Commo n [facility] blood pressure systolic 2024-11-30 09:40:00 130 mm[Hg] [facility] blood pressure diastolic 2024-11-30 09:40:00 76 mm[Hg] [facility] height 2024-11-23 08:00:00 66 [in_i] Commo n [facility] weight 2024-11-23 08:00:00 178.4 [lb_av] Co [facility] temperature 2024-11-23 08:00:00 97.3 [degF] [facility] [place] bmi 2024-11-23 08:00:00 28.79 kg/m2 Comm on [facility] oximetry 2024-11-23 08:00:00 98 % Commo n [facility] respiratory rate 2024-11-23 08:00:00 16 /min [facility] blood pressure systolic 2024-11-23 08:00:00 122 mm[Hg] Common [facility] blood pressure diastolic 2024-11-23 08:00:00 76 mm[Hg] [facility] BMI (Body Mass Index) 2024-08-10 00:00:00 28.2 kg/m2 [facility] BP Systolic 2024-08-10 00:00:00 140 mm[Hg] [facility] Height 2024-08-10 00:00:00 66 [in_i] [facility] BP Diastolic 2024-08-10 00:00:00 76 mm[Hg] [facility] Weight 2024-08-10 00:00:00 175 [lb_av] [facility] height 2024-08-06 09:00:00 66 [in_i] Commo n [facility] weight 2024-08-06 09:00:00 173.4 [lb_av] Co mmon [facility] temperature 2024-08-06 09:00:00 98 [degF] Comm on [facility] bmi 2024-08-06 09:00:00 27.98 kg/m2 Comm on [facility] oximetry 2024-08-06 09:00:00 97 % Commo n [facility] respiratory rate 2024-08-06 09:00:00 16 /min [facility] blood pressure systolic 2024-08-06 09:00:00 145 mm[Hg] Common [facility] blood pressure diastolic 2024-08-06 09:00:00 90 mm[Hg] [facility] height 2024-05-08 08:15:00 66 [in_i] Commo n [facility] weight 2024-05-08 08:15:00 175.6 [lb_av] Co mmon [facility] temperature 2024-05-08 08:15:00 96.6 [degF] Com mon [facility] bmi 2024-05-08 08:15:00 28.34 kg/m2 Comm on [facility] oximetry 2024-05-08 08:15:00 97 % Commo n [facility] blood pressure systolic 2024-05-08 08:15:00 124 mm[Hg] Common [facility] blood pressure diastolic 2024-05-08 08:15:00 60 mm[Hg] Common [facility] height 2024-04-27 11:15:00 66 [in_i] Commo n [facility] weight 2024-04-27 11:15:00 175 [lb_av] Comm on [facility] temperature 2024-04-27 11:15:00 97.2 [degF] Com mon [facility] bmi 2024-04-27 11:15:00 28.24 kg/m2 Comm on [facility] oximetry 2024-04-27 11:15:00 98 % Commo n [facility] blood pressure systolic 2024-04-27 11:15:00 116 mm[Hg] Common [facility] blood pressure diastolic 2024-04-27 11:15:00 70 mm[Hg] Common [facility] height 2024-01-29 08:00:00 66 [in_i] Commo n [facility] weight 2024-01-29 08:00:00 182 [lb_av] Comm on [facility] temperature 2024-01-29 08:00:00 97.3 [degF] [facility] [place] bmi 2024-01-29 08:00:00 29.37 kg/m2 Comm on [facility] oximetry 2024-01-29 08:00:00 99 % Commo n [facility] respiratory rate 2024-01-29 08:00:00 17 /min Common [facility] blood pressure systolic 2024-01-29 08:00:00 130 mm[Hg] Common [facility] blood pressure diastolic 2024-01-29 08:00:00 80 mm[Hg] Common [facility] height 2024-01-29 08:00:00 66 [in_i] Commo n [facility] weight 2024-01-29 08:00:00 182 [lb_av] Comm on [facility] temperature 2024-01-29 08:00:00 97.3 [degF] [facility] [place] bmi 2024-01-29 08:00:00 29.37 kg/m2 Comm on [facility] oximetry 2024-01-29 08:00:00 99 % Commo n [facility] respiratory rate 2024-01-29 08:00:00 17 /min Common [facility] blood pressure systolic 2024-01-29 08:00:00 130 mm[Hg] [facility] blood pressure diastolic 2024-01-29 08:00:00 80 mm[Hg] [facility] BP Systolic 2023-08-06 00:00:00 151 mm[Hg] [facility] BP Diastolic 2023-08-06 00:00:00 90 mm[Hg] [facility] Body Weight 2023-08-06 00:00:00 183.2 [lb_av] [facility] BMI (Body Mass Index) 2023-08-06 00:00:00 29.6 kg/m2 [facility] Height 2023-08-06 00:00:00 66 [in_i] [facility] height 2023-07-30 09:40:00 66 [in_i] Commo n [facility] weight 2023-07-30 09:40:00 182 [lb_av] Comm on [facility] temperature 2023-07-30 09:40:00 97.5 [degF] [facility] [place] bmi 2023-07-30 09:40:00 29.37 kg/m2 Comm on [facility] oximetry 2023-07-30 09:40:00 94 % Commo n [facility] respiratory rate 2023-07-30 09:40:00 18 /min [facility] blood pressure systolic 2023-07-30 09:40:00 139 mm[Hg] Common [facility] blood pressure diastolic 2023-07-30 09:40:00 85 mm[Hg] Common [facility] height 2023-06-18 09:40:00 66 [in_i] Commo n [facility] weight 2023-06-18 09:40:00 184 [lb_av] Comm on [facility] temperature 2023-06-18 09:40:00 97.8 [degF] [facility] [place] bmi 2023-06-18 09:40:00 29.7 kg/m2 Commo n [facility] oximetry 2023-06-18 09:40:00 96 % Commo n [facility] respiratory rate 2023-06-18 09:40:00 18 /min [facility] blood pressure systolic 2023-06-18 09:40:00 139 mm[Hg] [facility] blood pressure diastolic 2023-06-18 09:40:00 81 mm[Hg] [facility] height 2023-05-20 09:00:00 66 [in_i] Commo n [facility] weight 2023-05-20 09:00:00 184 [lb_av] Comm on [facility] temperature 2023-05-20 09:00:00 97.5 [degF] [facility] [place] bmi 2023-05-20 09:00:00 29.7 kg/m2 Commo n [facility] oximetry 2023-05-20 09:00:00 98 % Commo n [facility] respiratory rate 2023-05-20 09:00:00 17 /min [facility] blood pressure systolic 2023-05-20 09:00:00 140 mm[Hg] [facility] blood pressure diastolic 2023-05-20 09:00:00 80 mm[Hg] [facility] Procedures Procedure Date / Time Performed Performing Clinicia n Source MAMMO, screening, digital, bilateral 2024-08-10 00:00:00 [facility] Medical DEXA 2024-08-10 00:00:00 Delphine Patrick edical MAMMO, screening, digital, bilateral 2023-08-06 00:00:00 [facility] Medical DEXA 2023-08-06 00:00:00 Delphine Patrick edical ASSIGNMENT OF BENEFITS 2020-03-21 18:01:10 Docto r Unassigned, Panther Burn [facility] Encounters Start Date/Time End Date/Time Encounter Type Admission Type Attending [facility] Care Facility Care Department Encounter ID Source 2023-07-26 11:47:00 Outpatient Alessia Rosenbaum STDARRENLC STLMLC [id number] [facility] 2023-06-14 10:24:01 Outpatient Alessia Rosenbaum STLC STLMLC [id number] [facility] 2023-05-20 08:43:01 Outpatient Alessia Rosenbaum STLC STLMLC [id number] [facility] 2024-11-30 00:00:00 2024-11-30 00:00:00 OFFICE VISIT ESTAB PT LEVEL 3 STLMLC STLMLC [id number] [facility] 2024-11-27 00:00:00 2024-11-27 00:00:00 (TEL) STLMLC STLMLC [id number] [facility] 2024-11-23 00:00:00 2024-11-23 00:00:00 OFFICE VISIT ESTAB PT LEVEL 4 STLMLC STLMLC [id number] [facility] 2024-10-21 00:00:00 2024-10-21 00:00:00 (TEL) STLMLC STLMLC [id number] [facility] 2024-10-12 00:00:00 2024-10-12 00:00:00 (TEL) STLMLC STLMLC [id number] [facility] 2024-10-09 00:00:00 2024-10-09 00:00:00 (TEL) STLMLC STLMLC [id number] [facility] 2024-08-18 00:00:00 2024-08-18 00:00:00 (TEL) STLMLC STLMLC [id number] [facility] 2024-08-10 00:00:00 2024-08-10 00:00:00 BETTY Mtz: [address], [place] [address] , Ph. Critical access hospital [facility]* [id number] [facility] 2024-08-06 00:00:00 2024-08-06 00:00:00 (ESTPT) Joee d Patient STLMLC STLMLC [id number] [facility] 2024-05-08 00:00:00 2024-05-08 00:00:00 OFFICE VISIT ESTAB PT LEVEL 4 STLMLC STLMLC [id number] [facility] 2024-04-27 00:00:00 2024-04-27 00:00:00 OFFICE VISIT ESTAB PT LEVEL 3 STLMLC STLMLC [id number] [facility] 2024-01-29 00:00:00 2024-01-29 00:00:00 OFFICE VISIT ESTAB PT LEVEL 4 STLMLC STLMLC [id number] [facility] 2023-11-21 00:00:00 2023-11-21 00:00:00 (TEL) STLMLC STLMLC [id number] [facility] 2023-09-03 00:00:00 2023-09-03 00:00:00 Vera Fallon PA: [address], [place] [address] , Ph. Critical access hospital [facility]* [id number] [facility] 2023-08-08 00:00:00 2023-08-08 00:00:00 Deirdre Guerrero MD: [address], [place] [address] , Ph. [facility]ly [facility] - GC_GCBZW_[facility] [place]* [id number] [facility] 2023-08-07 00:00:00 2023-08-07 00:00:00 Outpatient GC_GCBZW_Ka diyala_[facility] [id number] [facility] 2023-08-06 00:00:00 2023-08-06 00:00:00 Tianna Lewis, DIRECTOR OF GLOBAL TALENT: [address], [place] [address] , Ph. GC_GCBZW_[place]_S [facility] - GC_GCBZW_[facility] [place]* [id number] [facility] 2023-07-30 00:00:00 2023-07-30 00:00:00 OFFICE VISIT ESTAB PT LEVEL 4 STLMLC STLMLC [id number] [facility] 2023-07-25 00:00:00 2023-07-25 00:00:00 (TEL) STLMLC STLMLC [id number] [facility] 2023-07-24 00:00:00 2023-07-24 00:00:00 (TEL) STLMLC STLMLC [id number] [facility] 2023-07-24 00:00:00 2023-07-24 00:00:00 (TEL) STLMLC STLMLC [id number] [facility] 2023-06-18 00:00:00 2023-06-18 00:00:00 PREV VISIT EST AGE 40-64 STLMLC STLMLC [id number] [facility] 2023-06-18 00:00:00 2023-06-18 00:00:00 (TEL) STLMLC STLMLC [id number] [facility] 2023-05-22 00:00:00 2023-05-22 00:00:00 (TEL) STLMLC STLMLC [id number] [facility] 2023-05-20 00:00:00 2023-05-20 00:00:00 OFFICE VISIT NEW PT LEVEL 4 STLMLC STLMLC [id number] [facility] 2020-05-19 13:37:06 2020-05-19 13:57:06 Laboratory Only Lab, Adc Fam Pob Darryn Odessa [facility] Office Building [address] [id number] [facility] 2020-05-19 13:20:00 2020-05-19 13:20:00 Outpatient ODESSA KOEHLER [facility] [id number] [facility] 2020-03-21 12:00:15 2020-03-21 12:15:15 Laboratory Only Only, [facility] Test JoshMarcell harvey [facility] [id number] [facility] 2020-03-21 11:30:00 2020-03-21 11:30:00 Outpatient MARCELL OLIVEROS [facility] [id number] [facility] 2020-03-21 00:00:00 2020-03-21 00:00:00 Orders Only Doctor Unassigned, Panther Burn [facility] [id number] [id number] [facility] Results Test Description Test Time Test Comments Results Result Co mments Source DRUG MONITORING [id number] 00:00:00Notes and CommentsCOMPREHENSIVE METABOLIC [id number] 00:00:00* Test Item Value Reference Range Interpretation Comme nts HEMATOCRIT (test code = 91658-6) 44.6 % See_Comment [Automated message] The system which generated this result transmitted reference range: 34.0-45.0 %. The reference range was not used to interpret this result as normal/abnormal. HEMOGLOBIN (test code = 718-7) 14.2 G/DL See_Comment [Automated message] The system which generated this result transmitted reference range: 11.5-15.5 G/DL. The reference range was not used to interpret this result as normal/abnormal. MCH (test code = 74794-7) 30.0 PG See_Comment [Automated message] The system which generated this result transmitted reference range: 25.0-33.0 PG. The reference range was not used to interpret this result as normal/abnormal. MCHC (test code = 83698-5) 31.8 G/DL See_Comment [Automated message] The system which generated this result transmitted reference range: 31.0-36.0 G/DL. The reference range was not used to interpret this result as normal/abnormal. MCV (test code = 69396-6) 94.3 fL See_Comment [Automated message] The system which generated this result transmitted reference range: 80.0-99.0 fL. The reference range was not used to interpret this result as normal/abnormal. PLATELET COUNT (test code = 63755-5) 276 K/UL See_Comment [Automated message] The system which generated this result transmitted reference range: 130-400 K/UL. The reference range was not used to interpret this result as normal/abnormal. RBC (test code = 96011-0) 4.73 M/UL See_Comment [Automated message] The system which generated this result transmitted reference range: 3.80-5.40 M/UL. The reference range was not used to interpret this result as normal/abnormal. WBC (test code = 81528-1) 5.8 K/UL See_Comment [Automated message] The system which generated this result transmitted reference range: 3.5-11.0 K/UL. The reference range was not used to interpret this result as normal/abnormal. HEMOGLOBIN A1c (test code = 4548-4) 5.6 % See_Comment [Automated message] The system which generated this result transmitted reference range: 4.2-5.6 %. The reference range was not used to interpret this result as normal/abnormal. ALBUMIN, URINE, RANDOM (test code = 16802-4) 0.3 MG/DL NOT ESTAB MG/DL CALC ALBUMIN/CREAT, RND (test code = 94469-6) 3 MG/G See_Comment [Automated message] The system which generated this result transmitted reference range: <30 MG/G. The reference range was not used to interpret this result as normal/abnormal. CREATININE, URINE, CONC. (test code = 2161-8) 119.1 MG/DL NOT ESTAB MG/DL TSH REFLEX TO FREE T4 (test code = 31059-3) 3.310 UIU/ML See_Comment [Automated message] The system which generated this result transmitted reference range: 0.400-4.100 UIU/ML. The reference range was not used to interpret this result as normal/abnormal. AMPHETAMINES (test code = 09331-4) NEGATIVE NEGATIVE BARBITURATES (test code = 95767-3) NEGATIVE NEGATIVE BENZODIAZEPINES (test code = 82985-5) NEGATIVE NEGATIVE BUPRENORPHINE (test code = 16973-5) NEGATIVE NEGATIVE CANNABINOIDS (THC) (test code = 05558-7) NEGATIVE NEGATIVE COCAINE METABOLITES (test code = 70217-4) NEGATIVE NEGATIVE METHADONE (test code = 72539-0) NEGATIVE NEGATIVE OPIATE METABOLITES (test code = 69765-0) NEGATIVE NEGATIVE OXYCODONE (test code = 43838-8) NEGATIVE NEGATIVE PHENCYCLIDINE (PCP) (test code = 73695-8) NEGATIVE NEGATIVE CALC LDL CHOL (test code = 99450-0) 135 MG/DL See_Comment H [Automated message] The system which generated this result transmitted reference range: <100 MG/DL. The reference range was not used to interpret this result as normal/abnormal. CHOLESTEROL (test code = 2093-3) 209 MG/DL See_Comment H [Automated message] The system which generated this result transmitted reference range: <200 MG/DL. The reference range was not used to interpret this result as normal/abnormal. HDL CHOLESTEROL (test code = 2085-9) 57 MG/DL See_Comment [Automated message] The system which generated this result transmitted reference range: >39 MG/DL. The reference range was not used to interpret this result as normal/abnormal. RISK RATIO LDL/HDL (test code = 21588-4) 2.37 RATIO See_Comment [Automated message] The system which generated this result transmitted reference range: <3.22 RATIO. The reference range was not used to interpret this result as normal/abnormal. TRIGLYCERIDES (test code = 2571-8) 73 MG/DL See_Comment [Automated message] The system which generated this result transmitted reference range: <150 MG/DL. The reference range was not used to interpret this result as normal/abnormal. ALBUMIN (test code = 1751-7) 4.3 G/DL See_Comment [Automated message] The system which generated this result transmitted reference range: 3.5-5.2 G/DL. The reference range was not used to interpret this result as normal/abnormal. ALKALINE PHOSPHATASE (test code = 6768-6) 76 U/L See_Comment [Automated message] The system which generated this result transmitted reference range: 40-140 U/L. The reference range was not used to interpret this result as normal/abnormal. BILIRUBIN, TOTAL (test code = 1975-2) 0.5 MG/DL See_Comment [Automated message] The system which generated this result transmitted reference range: <=1.2 MG/DL. The reference range was not used to interpret this result as normal/abnormal. BUN (test code = 3094-0) 18 MG/DL See_Comment [Automated message] The system which generated this result transmitted reference range: 8-23 MG/DL. The reference range was not used to interpret this result as normal/abnormal. CALCIUM (test code = 49742-7) 9.9 MG/DL See_Comment [Automated message] The system which generated this result transmitted reference range: 8.5-10.5 MG/DL. The reference range was not used to interpret this result as normal/abnormal. CALC A/G RATIO (test code = 1759-0) 1.9 RATIO See_Comment [Automated message] The system which generated this result transmitted reference range: 1.0-2.6 RATIO. The reference range was not used to interpret this result as normal/abnormal. CALC BUN/CREAT (test code = 3097-3) 20 RATIO See_Comment [Automated message] The system which generated this result transmitted reference range: 6-28 RATIO. The reference range was not used to interpret this result as normal/abnormal. CALC GLOBULIN (test code = 22187-8) 2.3 G/DL See_Comment [Automated message] The system which generated this result transmitted reference range: 1.9-3.7 G/DL. The reference range was not used to interpret this result as normal/abnormal. CARBON DIOXIDE (test code = 1963-8) 29 MEQ/L See_Comment [Automated message] The system which generated this result transmitted reference range: 19-31 MEQ/L. The reference range was not used to interpret this result as normal/abnormal. CHLORIDE (test code = 2075-0) 103 MEQ/L See_Comment [Automated message] The system which generated this result transmitted reference range: 95-107 MEQ/L. The reference range was not used to interpret this result as normal/abnormal. CREATININE (test code = 2160-0) 0.91 MG/DL See_Comment [Automated message] The system which generated this result transmitted reference range: 0.60-1.30 MG/DL. The reference range was not used to interpret this result as normal/abnormal. eGFR (2020 CKD-EPI) (test code = 54181-3) 71 ML/MIN/1.73 See_Comment [Automated message] The system which generated this result transmitted reference range: >60 ML/MIN/1.73. The reference range was not used to interpret this result as normal/abnormal. GLUCOSE (test code = 1558-6) 104 MG/DL See_Comment H [Automated message] The system which generated this result transmitted reference range: 70-99 MG/DL. The reference range was not used to interpret this result as normal/abnormal. POTASSIUM (test code = 2823-3) 4.6 MEQ/L See_Comment [Automated message] The system which generated this result transmitted reference range: 3.5-5.4 MEQ/L. The reference range was not used to interpret this result as normal/abnormal. PROTEIN, TOTAL (test code = 2885-2) 6.6 G/DL See_Comment [Automated message] The system which generated this result transmitted reference range: 6.1-8.3 G/DL. The reference range was not used to interpret this result as normal/abnormal. AST (test code = 1920-8) 22 U/L See_Comment [Automated message] The system which generated this result transmitted reference range: 9-40 U/L. The reference range was not used to interpret this result as normal/abnormal. ALT (test code = 1742-6) 24 U/L See_Comment [Automated message] The system which generated this result transmitted reference range: 5-40 U/L. The reference range was not used to interpret this result as normal/abnormal. SODIUM (test code = 2951-2) 144 MEQ/L See_Comment [Automated message] The system which generated this result transmitted reference range: 133-146 MEQ/L. The reference range was not used to interpret this result as normal/abnormal. LIPID [id number] 00:00:00* Test Item Value Reference Range Interpretation Comme nts CALC LDL CHOL (test code = 32103-8) 142 MG/DL See_Comment H [Automated messa ge] The system which generated this result transmitted reference range: <100 MG/DL. The reference range was not used to interpret this result as normal/abnormal. CHOLESTEROL (test code = 2093-3) 215 MG/DL See_Comment H [Automated messa ge] The system which generated this result transmitted reference range: <200 MG/DL. The reference range was not used to interpret this result as normal/abnormal. HDL CHOLESTEROL (test code = 2085-9) 57 MG/DL See_Comment [Automated messa ge] The system which generated this result transmitted reference range: >39 MG/DL. The reference range was not used to interpret this result as normal/abnormal. RISK RATIO LDL/HDL (test code = 51579-1) 2.49 RATIO See_Comment [Automated message] The system which generated this result transmitted reference range: <3.22 RATIO. The reference range was not used to interpret this result as normal/abnormal. TRIGLYCERIDES (test code = 2571-8) 66 MG/DL See_Comment [Automated messa ge] The system which generated this result transmitted reference range: <150 MG/DL. The reference range was not used to interpret this result as normal/abnormal. Genetic screen in Specimen by Molecular genetics method [id number] 00:00:00* Test Item Value Reference Range Interpretation Comme nts colaris and myrisk / note 2 tests (test code = colaris and myrisk / note 2 tests) significant clinical history finding TRACEE Collado + [id number] 00:00:00* Test Item Value Reference Range Interpretation [...] DNA type 18) not detected not detected [facility] MedicalDEXA, BONE DENSITY AXIAL SKELEDEXA, BONE DENSITY AXIAL SKELEDEXA, BONE DENSITY AXIAL SKELEDEXA, BONE DENSITY AXIAL ZQHDE1S SCR TOM BILAT W/CAD3D SCR TOM BILAT W/CAD3D SCR TOM BILAT W/CAD3D SCR TOM BILAT W/CAD3D SCR TOM BILAT W/CAD3D SCR TOM BILAT W/CAD
[2025-02-03] MEDS ORDERED: MAGNES/ALUMIN/SIMET 30ML UCUP ONE (20:17)
[2025-02-03] MEDS ORDERED: LORAZEPAM 0.5 MG TABLET ONE (20:17)
[2025-02-03 20:37] LABS: Absolute Lymphocytes (CBC) 1.8 K/uL (0.7-4.9); Hematocrit 41.5 % (36.0-45.0); Hemoglobin 13.9 g/dL (12.0-15.0); MCH 31.2 pg (27.0-35.0); MCHC 33.5 g/dL (32.0-36.0); MCV 93.1 fL (80-100); MPV 8.1 fL (7.6-11.3); Nucleated RBC Absolute Count 0.0 (0-0); Nucleated Red Blood Cells % 0.1 % (0-0); RBC Red Blood Cell Count 4.46 M/uL (3.86-4.86); White Blood Count 5.30 thou/uL (4.3-10.9)
--- NOTE | 2025-02-03 20:43 | RAD REPORT ---
EXAM: Chest Single View HISTORY: 64 years Female CHEST PAIN COMPARISON: 04/09/2024 FINDINGS: LUNGS/PLEURA: The lungs are clear. No pleural effusions or pneumothorax. No pulmonary edema. CARDIAC/MEDIASTINUM: The cardiac silhouette is within normal limits. UPPER ABDOMEN: No significant abnormality. BONES: No acute abnormality. LINES/TUBES/OTHER: N/A IMPRESSION: No evidence of acute cardiopulmonary disease.
[2025-02-03 20:58] LABS: ALT/SGPT 38.0 U/L (13-56); AST/SGOT 23.0 U/L (15-37); Albumin 3.4 g/dL (3.4-5.0); Albumin/Globulin Ratio 1.0 (1.1-1.8); Alkaline Phosphatase 75.0 U/L (45-117); Anion Gap 8.7 mEq/L (5.0-15.0); BUN Blood Urea Nitrogen 24.0 mg/dL (7-18); Globulin 3.4 g/dL (2.3-3.5); Glucose Level 118.0 mg/dL (74-106); Lipase 52.0 U/L (13-75); Potassium 3.7 mEq/L (3.5-5.1); Troponin High Sensitivity 5.1 pg/mL (<58.9)
--- NOTE | 2025-02-03 23:18 | EDPHYS ---
Physician Documentation [facility] Name: Shelly Celaya Age: 64 yrs Sex: Female : 1960 Arrival Date: 02/03/2025 Time: 19:53 Bed 5 Private MD: ED Physician Price Maldonado HPI: 02/03 21:11 This 64 yrs old Female presents to ER via Ambulatory with complaints of Chest Pain. tt7 21:11 The patient or guardian reports chest pain that is located primarily in the substernal tt7 area, epigastric area. Onset: 1 hour(s) ago. The pain does not radiate. Associated signs and symptoms: The patient has no apparent associated signs or symptoms. The chest pain is described as sharp. Duration: The patient or guardian reports a single episode, that lasted 10 minute(s). Severity of pain: At its worst the pain was moderate in the emergency department the pain has improved markedly. Established with geographical historian Dr. Bell. Historical: - Allergies: 20:10 NKDA; kd3 - PSHx: 20:10 polyps removed; kd3 - Immunization history:: Adult Immunizations up to date. - Infectious Disease History:: Denies. - Social history:: Smoking status: Patient denies any tobacco usage or history of. ROS: 21:10 Constitutional: negative for fever. Respiratory: negative for shortness of breath. tt7 Abdomen/GI: negative for abdominal pain, nausea, vomiting, diarrhea. MS/Extremity: negative for injury and deformity. Skin: negative for rash. Neuro: negative for focal weakness. 21:10 Cardiovascular: Positive for chest pain, Negative for palpitations, Exam: 21:10 Constitutional: vital signs reviewed, well appearing. Head/Face: normocephalic, tt7 atraumatic. Eyes: no conjunctival injection, anicteric sclerae. ENT: mucus membranes moist. Neck: trachea midline, no JVD, no meningismus. Chest/axilla: normal chest wall appearance and motion, nontender, no crepitus. Cardiovascular: regular rate and rhythm, no murmurs, no rubs, no lower extremity edema. Respiratory: normal respiratory effort, no accessory muscle use, lungs CTAB. Abdomen/GI: soft, nondistended, nontender, no guarding or rebound, negative Alvarenga's sign, no McBurney point tenderness. Skin: warm, dry, intact, normal turgor, normal color, no rash. MS/ Extremity: normal ROM of extremities, no gross deformities. Neuro: alert and oriented with appropriate mental status, normal speech, follows commands, no focal neurologic deficits. Psych: appropriate mood and affect. Vital Signs: 20:06 BP 115 / 79; Pulse 82; Resp 19; Pulse Ox 98% ; Weight 77.11 kg; Height 5 ft. 6 in. ; kd3 Pain 5/10; 20:13 Temp 98.5(O); kd3 21:11 BP 127 / 72; Pulse 79; Resp 16; Pulse Ox 100% on R/A; kd3 22:50 BP 118 / 82; Pulse 87; Resp 19; Pulse Ox 100% on R/A; kd3 23:29 BP 127 / 76; Pulse 76; Resp 18; Pulse Ox 99% on R/A; kd3 20:06 Body Mass Index 27.44 (77.11 kg, 167.64 cm) kd3 20:06 Pain Scale: Adult kd3 MDM: 20:04 Medical Screening Exam initiated tt7 20:15 Differential diagnosis: abnormal EKG, acute myocardial infarction, anxiety, chest wall tt7 pain, costochondritis, gastritis, gastroesophageal reflux disease (GERD), pancreatitis, peptic ulcer disease, pneumonia, pneumothorax. Data reviewed: vital signs, nurses notes, lab test result(s), EKG, radiologic studies. ED course: I independently interpreted the patient's EKG performed on 02/03/2025 at 2006. On my interpretation, EKG demonstrates normal sinus rhythm, ventricular rate 81 bpm, normal axis, normal QRS interval, normal ST segments, no STEMI. ED course: Cardiac monitoring was ordered due to the potential for ischemia causing dysrythmia. I independently interpreted the patient's cardiac rhythm as normal sinus rhythm at a rate of 81 bpm on the cardiac technologist. 21:10 HEART Score: History: Slightly Suspicious (0), ECG: Normal (0), Age: > 45 and < 65 tt7 years (1), Risk Factors: 1 or 2 risk factors (1), Troponin: < or = 1 x Normal Limit (0), Total Score = 2. 21:12 ED course: I independently interpreted the patient's chest x-ray. On my interpretation, tt7 chest x-ray demonstrates no radiographic evidence of acute cardiopulmonary disease. EKG without acute ischemic findings, troponin within normal limits, remainder of laboratory studies are reassuring without significant acute abnormalities, I reassessed the patient and pain as near totally resolved, patient has low risk heart score of 2, will obtain 2-hour repeat troponin and if within normal limits then patient can be discharged home to follow-up with her geographical historian as an outpatient. 23:18 ED course: Repeat troponin within normal limits, pain resolved, discussed need to tt7 follow-up with her geographical historian and discussed return precautions, after completion of the patient's emergency department evaluation, I do not suspect a life-threatening or disabling process. Patient is medically stable and not in need of emergent medical intervention. I had a detailed discussion with the patient regarding the historical points, exam findings, emergency department evaluation, diagnostic results, and the discharge diagnosis. I instructed the patient on outpatient management of their condition. I discussed the need for outpatient follow-up with a primary care physician. I informed the patient on return precautions, including the need to return to the ED if symptoms do not improve, worsen, or if there are any questions or concerns that arise at home. The patient was discharged in stable condition. 02/03 20:14 Order name: CBC with Diff; Complete Time: 20:51 tt7 02/03 20:14 Order name: Troponin HS; Complete Time: 21:01 tt7 02/03 20:14 Order name: Lipase; Complete Time: 21:01 tt7 02/03 20:14 Order name: Comprehensive Metabolic Panel; Complete Time: 21:01 tt7 02/03 22:27 Order name: Troponin High Sensitivity; Complete Time: 23:17 tt7 02/03 20:14 Order name: XRAY Chest (1 view); Complete Time: 20:51 tt7 02/03 20:14 Order name: EKG; Complete Time: 20:15 tt7 02/03 20:14 Order name: Cardiac monitoring; Complete Time: 20:16 tt7 02/03 20:14 Order name: EKG - Nurse/Tech; Complete Time: 20:16 tt7 02/03 20:14 Order name: IV Saline Lock; Complete Time: 20:22 tt7 02/03 20:14 Order name: Labs collected and sent; Complete Time: 20:22 tt7 02/03 20:14 Order name: O2 Per Protocol; Complete Time: 20:22 tt7 02/03 20:14 Order name: O2 Sat Monitoring; Complete Time: 20:22 tt7 Administered Medications: 20:22 Drug: Alum-Mag Hydroxide-Simeth PO Suspension (200 mg-200 mg-20 mg/5 mL) 30 ml PO once kb4 Route: PO; 23:30 Follow up: Response: No adverse reaction kd3 20:22 Not Given (Patient Refused): lorazepam0.5 mg PO once kb4 Disposition: 23:19 Co-signature as Attending Physician, Price Maldonado DO. tt7 Disposition Summary: 02/03/25 23:18 Discharge Ordered Notes: Location: Home tt7 Problem: new tt7 Symptoms: are resolved tt7 Condition: Stable tt7 Diagnosis - Chest pain, unspecified tt7 Followup: tt7 - With: Emergency Department - When: As needed - Reason: Followup: tt7 - With: Herve Bell MD - When: 2 - 3 days - Reason: Recheck today's complaints, Continuance of care, Re-evaluation by your physician Discharge Instructions: - Discharge Summary Sheet tt7 - Nonspecific Chest Pain, Adult, [id number] tt7 Forms: - Medication Reconciliation Form tt7 - Antibiotic Education tt7 - Prescription Opioid Use tt7 - Patient Portal Instructions tt7 - Leadership Thank You Letter tt7 Signatures: Dispatcher [employer] Chelo Swanson RN RN kd3 Peg Li RN RN kb4 Price Maldonado DO DO tt7 Corrections: (The following items were deleted from the chart) 20:15 20:15 CBC+H.LAB.BRZ ordered. [facility] EDTN 20:15 20:15 Troponin High Sensitivity+C.LAB.BRZ ordered. [facility] EDTN 20:15 20:15 LIPASE+C.LAB.BRZ ordered. [facility] EDTN 20:15 20:15 COMPREHENSIVE METABOLIC PANEL+C.LAB.BRZ ordered. [facility] EDTN 22:00 21:12 ED course: EKG without acute ischemic findings, troponin within normal limits, tt7 remainder of laboratory studies are reassuring without significant acute abnormalities, I reassessed the patient and pain as near totally resolved, patient has low risk heart score of 2, will obtain 2-hour repeat troponin and if within normal limits then patient can be discharged home to follow-up with her geographical historian as an outpatient. tt7 22:28 22:27 Troponin High Sensitivity+C.LAB.GLENN ordered. EDMS EDMS
--- NOTE | 2025-02-03 23:18 | ER ---
Nurse's Notes [facility] Name: Shelly Celaya Age: 64 yrs Sex: Female : 1960 Arrival Date: 02/03/2025 Time: 19:53 Bed 5 Private MD: Diagnosis: Chest pain, unspecified Presentation: 02/03 20:06 Chief complaint: Patient states: I AM HAVING CHEST PAINS THAT STARTED ABOUT 15 TO 20 kd3 MINUTES AGO. IT IS IN THE MIDDLE OF MY CHEST. IT WAS A 9/10. IT SETTLED DOWN A BIT TO A 5/10 BUT I DON'T WANT TO TAKE ANY CHANCES. Coronavirus screen: Vaccine status: Patient reports receiving the 2nd dose of the covid vaccine. Ebola Screen: No symptoms or risks identified at this time. Initial Sepsis Screen: Does the patient meet any 2 criteria? No. Patient's initial sepsis screen is negative. Does the patient have a suspected source of infection? No. Patient's initial sepsis screen is negative. Risk Assessment: Do you want to hurt yourself or someone else? Patient reports no desire to harm self or others. Onset of symptoms was February 03, 2025. 20:06 Method Of Arrival: Ambulatory kd3 20:06 Acuity: SARITA 3 kd3 Triage Assessment: 20:10 General: Appears uncomfortable, Behavior is calm, cooperative. Pain: Complains of pain kd3 in xiphoid area. Neuro: Level of Consciousness is awake, alert, obeys commands, Oriented to person, place, time, situation. Cardiovascular: Capillary refill < 3 seconds Patient's skin is warm and dry. Respiratory: Airway is patent Trachea midline Respiratory effort is even, unlabored, Respiratory pattern is regular, symmetrical. Historical: - Allergies: 20:10 NKDA; kd3 - PSHx: 20:10 polyps removed; kd3 - Immunization history:: Adult Immunizations up to date. - Infectious Disease History:: Denies. - Social history:: Smoking status: Patient denies any tobacco usage or history of. Screenin:12 [facility] ED Fall Risk Assessment (Adult) History of falling in the last 3 months, kd3 including since admission No falls in past 3 months (0 pts) Confusion or Disorientation No (0 pts) Intoxicated or Sedated No (0 pts) Impaired Gait No (0 pts) Mobility Assist Device Used No (0 pt) Altered Elimination No (0 pt) Score/Fall Risk Level 0 - 2 = Low Risk Maintained a safe environment. Abuse screen: Denies threats or abuse. Denies injuries from another. Nutritional screening: No deficits noted. Tuberculosis screening: No symptoms or risk factors identified. Assessment: 20:04 Pain: Pain began 30 min ago. kd3 20:13 Pain: Pain does not radiate. kd3 21:11 General: Appears in no apparent distress. Behavior is calm, cooperative. Neuro: Level kd3 of Consciousness is awake, alert, obeys commands, Oriented to person, place, time, situation. Cardiovascular: Rhythm is sinus rhythm. Respiratory: Airway is patent Trachea midline Respiratory effort is even, unlabored, Respiratory pattern is regular, symmetrical. 22:50 General: Appears in no apparent distress. Behavior is calm, cooperative. Neuro: Level kd3 of Consciousness is awake, alert, obeys commands, Oriented to person, place, time, situation. Cardiovascular: Rhythm is sinus rhythm. 23:28 General: Appears in no apparent distress. Behavior is anxious. Neuro: Level of kd3 Consciousness is awake, alert, obeys commands, Oriented to person, place, time, situation. Cardiovascular: Patient's skin is warm and dry. Rhythm is sinus rhythm. Respiratory: Airway is patent Respiratory effort is even, unlabored, Respiratory pattern is regular, symmetrical. Vital Signs: 20:06 BP 115 / 79; Pulse 82; Resp 19; Pulse Ox 98% ; Weight 77.11 kg; Height 5 ft. 6 in. ; kd3 Pain 5/10; 20:13 Temp 98.5(O); kd3 21:11 BP 127 / 72; Pulse 79; Resp 16; Pulse Ox 100% on R/A; kd3 22:50 BP 118 / 82; Pulse 87; Resp 19; Pulse Ox 100% on R/A; kd3 23:29 BP 127 / 76; Pulse 76; Resp 18; Pulse Ox 99% on R/A; kd3 20:06 Body Mass Index 27.44 (77.11 kg, 167.64 cm) kd3 20:06 Pain Scale: Adult kd3 ED Course: 19:54 Patient arrived in ED. mr 20:04 Price Maldonado DO is Attending Physician. tt7 20:06 Yossi, Chelo, RN is Primary Nurse. kd3 20:08 EKG done, by ED staff, reviewed by Price Maldonado DO. [facility] 20:09 Triage completed. kd3 20:10 Arm band placed on right wrist. kd3 20:12 No provider procedures requiring assistance completed. Inserted saline lock: 20 gauge kd3 in right antecubital area, using aseptic technique. Blood collected. Flushed with 10 mL NS. Patient maintains SpO2 saturation greater than 95% on room air. 20:13 Patient has correct armband on for positive identification. Provided Education on: EKG. kd3 Client placed on continuous cardiac and pulse oximetry monitoring. NIBP monitoring applied. quality assurance monitor body on. 20:30 XRAY Chest (1 view) In Process Unspecified. EDMS 23:17 Herve Bell MD is Referral Physician. tt7 23:28 IV discontinued, intact, bleeding controlled, No redness/swelling at site. Pressure kd3 dressing applied. Administered Medications: 20:22 Drug: Alum-Mag Hydroxide-Simeth PO Suspension (200 mg-200 mg-20 mg/5 mL) 30 ml PO once kb4 Route: PO; 23:30 Follow up: Response: No adverse reaction kd3 20:22 Not Given (Patient Refused): lorazepam0.5 mg PO once kb4 Medication: 22:51 VIS not applicable for this client. kd3 Outcome: 23:18 Discharge ordered by . tt7 23:26 Discharged to home ambulatory, kd3 23:26 Condition: stable 23:26 Discharge instructions given to patient, Instructed on discharge instructions, follow up and referral plans. Demonstrated understanding of instructions, follow-up care, 23:31 Patient left the ED. kd3 Signatures: Dispatcher [employer] EDMN Bouchra Peña, Reg Quirino YossiChelo RN RN kd3 Norma Cardoza km Peg Li RN RN kb4 Price Maldonado DO DO tt7
[2025-02-04 01:11] VITALS: TEMP 98.5
[2025-02-04 01:16] VITALS: BP 127/76; O2SAT 99
== END 2025-02-03 23:31 | disposition home or self-care (01) ==
LOC: ER 19:53
DX: R07.9 Chest pain, unspecified (principal)
CPT/HCPCS: 36415; 71045; 80053; 83690; 84484; 85025; 93005; 99284